=== PATIENT | female | born 1960 | race Caucasian/White ===

== ENCOUNTER 2017-10-04 09:56 | Observation (INO) | payer OTHER ==
[~2017-10-04] VITALS: Ht 167.6 cm; Wt 60.7 kg
[2017-10-04 11:09] LABS: HEMATOCRIT 31.8 % (36.0-46.0); HEMOGLOBIN 10.5 G/DL (11.9-15.5); MCH 27.4 PG (29.0-34.0); PLATELET COUNT 365 K/uL (156-360); RBC DIS.WIDTH-CV 15.4 % (11.8-14.6); RBC DIS.WIDTH-SD 46.5 % (39-53); RED BLOOD COUNT 3.83 M/uL (3.80-5.20); WHITE BLOOD COUNT 11.8 K/uL (4.1-10.2)
[2017-10-04 11:26] LABS: CHLORIDE 98 mEq/L (99-109); POTASSIUM 3.8 mEq/L (3.7-5.4); SODIUM 131 mEq/L (136-147)
[2017-10-04 11:30] LABS: TOTAL BILIRUBIN 0.5 mg/dL (0.0-1.0)
[2017-10-04 11:38] LABS: ALBUMIN 3.4 g/dL (3.2-4.8)
[2017-10-04 11:41] LABS: GLUCOSE 80 mg/dL (70-99)
[2017-10-04 11:44] LABS: ALKALINE PHOSPHATASE 140 IU/L (3-129)
[2017-10-04 11:45] LABS: GFR ESTIMATE (CALCULATED) 27 mL/min/
[2017-10-04 11:46] LABS: AST (GOT) 52 IU/L (2-34); UREA NITROGEN (BUN) 46 mg/dL (9-23)
[2017-10-04 11:47] LABS: ALT (GPT) 31 IU/L (3-49)
[2017-10-04 12:01] LABS: APPEARANCE SL.HAZY ((CLEAR)); BILIRUBIN NEGATIVE; BLOOD MODERATE; COLOR YELLOW ((YELLOW)); GLUCOSE (STRIP) NEGATIVE; KETONES NEGATIVE; LEUKOCYTES SMALL; NITRITE NEGATIVE; PROTEIN (STRIP) 100; SPECIFIC GRAVITY 1.018 (1.000-1.030)
[2017-10-04 12:06] LABS: BACTERIA NONE SEEN /HPF; EPITHELIAL CELLS RARE /HPF; HYALINE CASTS 0-5 /LPF; MUCUS TRACE /LPF; RED BLOOD CELLS 0-5 /HPF (0-5); UCUL ADDED? NO; WHITE BLOOD CELLS 0-5 /HPF (0-5)
[2017-10-04 13:05] LABS: SOURCE SWAB
[2017-10-04 14:33] VITALS: BP 112/74
[2017-10-04 14:36] LABS: C-REACTIVE PROTEIN 165.5 MG/L (0-10)
[2017-10-04 19:00] VITALS: BP 106/59
[2017-10-05] VITALS: BP 107/57
[2017-10-05 06:08] LABS: HEMATOCRIT 26.8 % (36.0-46.0); HEMOGLOBIN 8.3 G/DL (11.9-15.5); MCH 26.3 PG (29.0-34.0); MCV 85.1 FL (83-99); PLATELET COUNT 287 K/uL (156-360); RBC DIS.WIDTH-CV 15.8 % (11.8-14.6); RBC DIS.WIDTH-SD 48.9 % (39-53); RED BLOOD COUNT 3.15 M/uL (3.80-5.20); WHITE BLOOD COUNT 5.4 K/uL (4.1-10.2)
[2017-10-05 06:18] LABS: ALBUMIN 2.5 G/DL (3.2-4.8); ALKALINE PHOSPHATASE 83 IU/L (3-129); ALT (GPT) 17 IU/L (3-49); AST (GOT) 25 IU/L (2-34); CHLORIDE 107 MEQ/L (99-109); GLUCOSE 61 mg/dL (70-99); POTASSIUM 3.3 MEQ/L (3.7-5.4); SODIUM 137 MEQ/L (136-147); TOTAL BILIRUBIN 0.5 MG/DL (0.0-1.0); TOTAL PROTEIN 4.8 G/DL (6.4-8.3)
[2017-10-05 06:19] LABS: CREATININE 0.8 MG/DL (0.6-1.3); GFR ESTIMATE (CALCULATED) > 59 mL/min/; UREA NITROGEN (BUN) 22 mg/dL (9-23)
[2017-10-05 08:51] VITALS: BP 112/62
[2017-10-05] MEDS ORDERED: CIPRO500 MG PO (11:12)
[2017-10-05] MEDS ORDERED: FLAGYL500 MG PO (11:12)
[2017-10-05] MEDS ORDERED: METHADONE1 MG/1 ML PO (11:19)
[2017-10-05 11:23] VITALS: BP 108/55
[2017-10-05] MEDS ORDERED: NICODERM CQ1 EAC1 TD (14:56)
== END 2017-10-05 15:04 | disposition home or self-care (01) ==
LOC: EME 09:56 → EDOF 13:09 → ENRESERV 13:26 → EDOF 14:16 → 5WEST 14:22 → ENPENDDIS 10-05 → 5WEST 10-05 15:04
PROVIDERS: Emergency Medicine; Student in an Organized Health Care Education/Training Program
DX: K57.92 Diverticulitis of intestine, part unspecified, without perforation or abscess without bleeding (principal); N17.9 Acute kidney failure, unspecified; E86.0 Dehydration; N89.8 Other specified noninflammatory disorders of vagina; D72.829 Elevated white blood cell count, unspecified; M79.604 Pain in right leg; M79.89 Other specified soft tissue disorders; F17.210 Nicotine dependence, cigarettes, uncomplicated; F11.20 Opioid dependence, uncomplicated; Z82.49 Family history of ischemic heart disease and other diseases of the circulatory system; Z82.3 Family history of stroke; Z83.79 Family history of other diseases of the digestive system; Z88.6 Allergy status to analgesic agent
CPT/HCPCS: 74176; 80053; 81003; 85027; 86140; 87210; 87491; 87591; 93971; 99281; 99285; G0378; J0744; J1650; J7030; J7120; S0030